=== PATIENT | female | born 1935 | race Caucasian/White ===

== ENCOUNTER 2020-09-10 11:17 | Observation (INO) ==
[2020-09-10 12:07] LABS: Bilirubin,Urine Negative (Negative); Blood,Urine Negative (Negative); Clarity,Urine Clear (Clear); Color,Urine Yellow (Yellow); Glucose,Urine (UA) Normal (Normal); Ketones,Urine 40 mg/dL (Negative); Leukocyte Esterase,Urine Small (Negative); Mucus,Urine Few per lpf (None-Few); Nitrite,Urine Negative (Negative); Protein,Urine 30 mg/dL (Neg-Trace); Specific Gravity,Urine 1.026 (1.010-1.025); Squamous Epithelial Cell,Urine Few per hpf (None-Few); Urobilinogen,Urine Normal (Normal); WBC,Urine 15-30 per hpf (0-3)
[2020-09-10] MEDS ORDERED: 0.9 % Sodium Chloride 1,000 ML IVC ONE (12:29)
[2020-09-10] MEDS ORDERED: Ondansetron 4 MG/2 ML VIAL IVP ONE (12:29)
[2020-09-10] MEDS ORDERED: Morphine Sulfate 2 MG/ML SYRINGE IVP ONE (12:34)
[2020-09-10 12:35] LABS: Basophils # 0.1 K/mcL (0.0-0.2); Basophils % 0.7 %; Eosinophils # 0.2 K/mcL (0.0-0.6); Eosinophils % 1.6 %; Hematocrit 45.1 % (35.3-44.9); Hemoglobin 14.3 g/dL (11.5-15.4); Immature Granulocytes % 0.3 % (0-4); Lymphocytes # 2.9 K/mcL (0.6-4.6); Mean Corpuscular HGB Conc 31.7 g/dL (31.6-35.5); Mean Corpuscular Hemoglobin 27.8 pg (28.0-33.3); Mean Corpuscular Volume 87.7 fL (83.0-100.0); Mean Platelet Volume 10.4 fL (9.4-12.4); Monocytes # 0.7 K/mcL (0.0-1.3); Monocytes % 6.3 %; Neutrophils # 6.8 K/mcL (1.6-8.9); Platelet Count 254 K/mcL (140-400); Red Blood Count 5.14 M/mcL (3.82-4.97); Red Cell Distribution Width 14.6 % (11.5-14.5); Segmented Neutrophils % 64.1 %; White Blood Count 10.5 K/mcL (4.3-11.1)
[2020-09-10 12:43] LABS: Alanine Aminotransferase 12 Units/L (7-52); Albumin 3.8 g/dL (3.5-5.7); Albumin/Globulin Ratio 1.2 (1.1-2.2); Alkaline Phosphatase 70 Units/L (34-104); Aspartate Amino Transferase 21 Units/L (13-39); BUN/Creatinine Ratio 24 (6-26); Bilirubin,Direct 0.2 mg/dL (0.0-0.2); Bilirubin,Indirect 0.6 mg/dL (0.0-1.0); Bilirubin,Total 0.8 mg/dL (0.3-1.0); Blood Urea Nitrogen 21 mg/dL (8-23); Calcium 9.6 mg/dL (8.6-10.3); Carbon Dioxide 21 mEq/L (23-29); Chloride 102 mEq/L (98-107); Globulin 3.3 g/dL (2.4-3.5); Glucose 211 mg/dL (70-105); Magnesium 1.7 mg/dL (1.6-2.6); Osmolality,Calculated 299 (280-300); Potassium 3.6 mEq/L (3.5-5.1); Sodium 140 mEq/L (136-145); Total Protein 7.1 g/dL (6.4-8.9); eGFR For African Americans > 60 (> 60); eGFR For Non-African Americans > 60 (> 60)
[2020-09-10 12:52] LABS: VBG HCO3 27 mEq/L (21-27); VBG PCO2 38 mmHg (41-51); VBG PH 7.46 pH Units (7.32-7.42); VBG PO2 57 mmHg (25-50)
[2020-09-10] MEDS ORDERED: Piperacillin/Tazobactam 3.375 GM in Water for inj. (sterile) 20 ML IVP ONE (13:38)
[2020-09-10] MEDS ORDERED: Pantoprazole 40 MG in 0.9 % Sodium Chloride 50 ML IVPB ONE (13:38)
[2020-09-10] MEDS ORDERED: *HR* Dextrose 50 % in Water (Vial) 50 ML VIAL IVP PRN (16:08)
[2020-09-10] MEDS ORDERED: D5% in Water 1,000 ML IVC PRN (16:08)
[2020-09-10] MEDS ORDERED: Dextrose Gel 15 GM/37.5 ML TUBE PO PRN (16:08)
[2020-09-10] MEDS ORDERED: 0.9 % Sodium Chloride 1,000 ML IVC SCH (16:15)
[2020-09-10] MEDS ORDERED: Naloxone 0.4 MG/ML INJ IVP PRN (16:41)
[2020-09-10] MEDS: Metoprolol XL (24 HR) Succ 50 MG TAB.ER.24H PO SCH (17:45)
[2020-09-10] MEDS: Aspirin Enteric Coated 81 MG Tablet PO SCH (17:45)
[2020-09-10] MEDS: Sucralfate 1 GM TABLET PO SCH (17:45)
[2020-09-10] MEDS: Dextrose Gel 15 GM/37.5 ML TUBE PO PRN ×2 (17:55→18:18)
[2020-09-10] MEDS ORDERED: *HR* Heparin 5,000 UNIT/ML VIAL SQ SCH (18:00)
[2020-09-10] MEDS: Insulin LISPRO 300 UNITS/3 ML VIAL SUBQ SCH ×2 (18:13→21:18)
[2020-09-10] MEDS: Acetaminophen 325 MG TABLET PO PRN (21:10)
[2020-09-10] MEDS: Pantoprazole 40 MG VIAL IVP SCH (21:11)
[2020-09-10] MEDS: Insulin DETEMIR 100 UNIT/ML X5UNITS SUBQ SCH (21:18)
[2020-09-11 04:55] LABS: Basophils # 0.1 K/mcL (0.0-0.2); Basophils % 0.6 %; Eosinophils # 0.3 K/mcL (0.0-0.6); Hematocrit 38.7 % (35.3-44.9); Immature Granulocytes % 0.3 % (0-4); Lymphocytes # 3.4 K/mcL (0.6-4.6); Lymphocytes % 39.6 %; Mean Corpuscular HGB Conc 30.5 g/dL (31.6-35.5); Mean Corpuscular Hemoglobin 27.8 pg (28.0-33.3); Mean Corpuscular Volume 91.3 fL (83.0-100.0); Mean Platelet Volume 10.3 fL (9.4-12.4); Monocytes # 0.7 K/mcL (0.0-1.3); Monocytes % 8.2 %; Neutrophils # 4.2 K/mcL (1.6-8.9); Platelet Count 200 K/mcL (140-400); Red Blood Count 4.24 M/mcL (3.82-4.97); Red Cell Distribution Width 14.8 % (11.5-14.5); Segmented Neutrophils % 48.3 %; White Blood Count 8.6 K/mcL (4.3-11.1)
[2020-09-11 04:57] LABS: Hemoglobin 11.8 g/dL (11.5-15.4)
[2020-09-11 05:08] LABS: BUN/Creatinine Ratio 23 (6-26); Blood Urea Nitrogen 23 mg/dL (8-23); Calcium 8.4 mg/dL (8.6-10.3); Carbon Dioxide 27 mEq/L (23-29); Chloride 107 mEq/L (98-107); Glucose 138 mg/dL (70-105); Osmolality,Calculated 296 (280-300); Potassium 4.2 mEq/L (3.5-5.1); Sodium 140 mEq/L (136-145); eGFR For African Americans > 60 (> 60); eGFR For Non-African Americans 53 (> 60)
[2020-09-11] MEDS: Pantoprazole 40 MG VIAL IVP SCH ×2 (05:38→17:04)
[2020-09-11] MEDS: Sucralfate 1 GM TABLET PO SCH ×2 (07:30→17:04)
[2020-09-11] MEDS: Insulin LISPRO 300 UNITS/3 ML VIAL SUBQ SCH ×4 (08:37→21:30)
[2020-09-11] MEDS: Aspirin Enteric Coated 81 MG Tablet PO SCH (08:39)
[2020-09-11] MEDS: Metoprolol XL (24 HR) Succ 50 MG TAB.ER.24H PO SCH (08:39)
[2020-09-11] MEDS: amLODIPine 5 MG TABLET PO SCH (08:39)
[2020-09-11] MEDS: cefTRIAXone 1,000 MG in 0.9 % Sodium Chloride Mini Bag 100 ML IVP SCH (08:40)
[2020-09-11] MEDS ORDERED: Aspirin 81 MG TAB.CHEW PO SCH (09:00)
[2020-09-11] MEDS ORDERED: Metoprolol XL (24 HR) Succ 50 MG TAB.ER.24H PO SCH (09:00)
[2020-09-11] MEDS: Ondansetron 4 MG/2 ML VIAL IVP PRN ×2 (09:40→18:13)
[2020-09-11] MEDS ORDERED: Morphine Sulfate 2 MG/ML SYRINGE IVP ONE ×2 (09:50→10:16)
[2020-09-11] MEDS: 0.9 % Sodium Chloride 1,000 ML IVC SCH (12:35)
[2020-09-11] MEDS ORDERED: *HR* Propofol 200 MG/20 ML VIAL IVP ONE (12:53)
[2020-09-11] MEDS ORDERED: Lidocaine -MPF 2% 2 ML VIAL ONE (12:53)
[2020-09-11] MEDS: Acetaminophen 325 MG TABLET PO PRN (21:30)
[2020-09-11] MEDS: Insulin DETEMIR 100 UNIT/ML X5UNITS SUBQ SCH (21:35)
[2020-09-12] MEDS: Pantoprazole 40 MG VIAL IVP SCH (05:50)
[2020-09-12 06:15] VITALS: BP 120/71
[2020-09-12] MEDS: Sucralfate 1 GM TABLET PO SCH (08:01)
[2020-09-12] MEDS: amLODIPine 5 MG TABLET PO SCH (08:01)
[2020-09-12] MEDS: Metoprolol XL (24 HR) Succ 50 MG TAB.ER.24H PO SCH (08:01)
[2020-09-12] MEDS: Aspirin Enteric Coated 81 MG Tablet PO SCH (08:01)
[2020-09-12] MEDS: cefTRIAXone 1,000 MG in 0.9 % Sodium Chloride Mini Bag 100 ML IVP SCH (08:02)
[2020-09-12] MEDS: Insulin LISPRO 300 UNITS/3 ML VIAL SUBQ SCH (08:02)
[2020-09-12] MEDS: 0.9 % Sodium Chloride 1,000 ML IVC SCH ×2 (08:07→08:12)
== END 2020-09-12 15:18 | disposition home health service (06) ==
LOC: 3ANU 11:17 → EMEROOARM 11:17 → 3ANU 16:53
PROVIDERS: ADMIT Internal Medicine; ATTEND Internal Medicine
PROC: ENDOEBX (2020-09-11 11:30)

== ENCOUNTER 2020-10-03 10:10 | Observation (INO) ==
[2020-10-03] MEDS ORDERED: *HR* Dextrose 50 % in Water (Vial) 50 ML VIAL IVP ONE (10:24)
[2020-10-03] MEDS ORDERED: *HR* Dextrose 50 % in Water (Vial) 50 ML VIAL ONE (10:26)
[2020-10-03 10:47] LABS: Hematocrit 39.1 % (35.3-44.9); Hemoglobin 12.1 g/dL (11.5-15.4); Mean Corpuscular HGB Conc 30.9 g/dL (31.6-35.5); Mean Corpuscular Hemoglobin 27.5 pg (28.0-33.3); Mean Corpuscular Volume 88.9 fL (83.0-100.0); Mean Platelet Volume 10.4 fL (9.4-12.4); Platelet Count 304 K/mcL (140-400); Red Cell Distribution Width 15.2 % (11.5-14.5); Segmented Neutrophils % 62.6 %; White Blood Count 7.8 K/mcL (4.3-11.1)
[2020-10-03 10:48] LABS: Basophils % 0.4 %; Eosinophils # 0.1 K/mcL (0.0-0.6); Eosinophils % 0.8 %; Immature Granulocytes % 0.4 % (0-4); Lymphocytes # 2.2 K/mcL (0.6-4.6); Lymphocytes % 27.9 %; Monocytes # 0.6 K/mcL (0.0-1.3); Monocytes % 7.9 %; Neutrophils # 4.9 K/mcL (1.6-8.9)
[2020-10-03 11:23] LABS: Alanine Aminotransferase 10 Units/L (7-52); Albumin 3.6 g/dL (3.5-5.7); Albumin/Globulin Ratio 1.1 (1.1-2.2); Alkaline Phosphatase 64 Units/L (34-104); Aspartate Amino Transferase 19 Units/L (13-39); BUN/Creatinine Ratio 27 (6-26); Bilirubin,Total 0.5 mg/dL (0.3-1.0); Blood Urea Nitrogen 21 mg/dL (8-23); Carbon Dioxide 28 mEq/L (23-29); Chloride 102 mEq/L (98-107); Globulin 3.3 g/dL (2.4-3.5); Glucose 64 mg/dL (70-105); Osmolality,Calculated 291 (280-300); Potassium 3.9 mEq/L (3.5-5.1); Sodium 140 mEq/L (136-145); Total Protein 6.9 g/dL (6.4-8.9); Troponin I 0.04 ng/mL (< 0.04); eGFR For African Americans > 60 (> 60); eGFR For Non-African Americans > 60 (> 60)
[2020-10-03] MEDS ORDERED: *HR* OxyCODONE/APAP 5/325 TABLET PO ONE (14:32)
[2020-10-03] MEDS ORDERED: Ondansetron 4 MG/2 ML VIAL IVP PRN (15:11)
[2020-10-03] MEDS ORDERED: Naloxone 0.4 MG/ML INJ IVP PRN (15:11)
[2020-10-03] MEDS ORDERED: Dextrose Gel 15 GM/37.5 ML TUBE PO PRN ×2 (15:19)
[2020-10-03] MEDS ORDERED: *HR* Dextrose 50 % in Water (Vial) 50 ML VIAL IVP PRN (15:19)
[2020-10-03] MEDS ORDERED: D5% in Water 1,000 ML IVC PRN (15:19)
[2020-10-03 16:22] LABS: Bacteria,Urine Few per hpf (None-Few); Bilirubin,Urine Negative (Negative); Blood,Urine Negative (Negative); Clarity,Urine Clear (Clear); Color,Urine Light-Yellow (Yellow); Glucose,Urine (UA) Normal (Normal); Ketones,Urine Negative (Negative); Leukocyte Esterase,Urine Small (Negative); Mucus,Urine Few per lpf (None-Few); Nitrite,Urine Negative (Negative); PH,Urine 6.5 pH Units (5.0-8.0); Protein,Urine Negative (Neg-Trace); RBC,Urine 0-3 per hpf (0-3); Specific Gravity,Urine 1.013 (1.010-1.025); Urobilinogen,Urine Normal (Normal)
[2020-10-03 16:43] LABS: Estimated Average Glucose 169 mg/dl; Hemoglobin A1C 7.5 %
[2020-10-03] MEDS: Insulin LISPRO 300 UNITS/3 ML VIAL SUBQ SCH ×2 (18:51→20:45)
[2020-10-03] MEDS: Pregabalin 75 MG CAPSULE PO SCH (19:48)
[2020-10-03] MEDS: 0.9 % Sodium Chloride 1,000 ML IVC SCH (19:49)
[2020-10-03] MEDS: Ketorolac 30 MG/ML VIAL IVP PRN (19:55)
[2020-10-04] MEDS: 0.9 % Sodium Chloride 1,000 ML IVC SCH (03:59)
[2020-10-04 06:08] LABS: Basophils # 0.1 K/mcL (0.0-0.2); Basophils % 0.9 %; Eosinophils # 0.1 K/mcL (0.0-0.6); Eosinophils % 2.4 %; Hematocrit 34.7 % (35.3-44.9); Hemoglobin 10.9 g/dL (11.5-15.4); Immature Granulocytes % 0.3 % (0-4); Lymphocytes % 33.6 %; Mean Corpuscular HGB Conc 31.4 g/dL (31.6-35.5); Mean Corpuscular Hemoglobin 27.6 pg (28.0-33.3); Mean Corpuscular Volume 87.8 fL (83.0-100.0); Mean Platelet Volume 10.1 fL (9.4-12.4); Monocytes # 0.5 K/mcL (0.0-1.3); Monocytes % 8.9 %; Neutrophils # 3.2 K/mcL (1.6-8.9); Platelet Count 284 K/mcL (140-400); Red Blood Count 3.95 M/mcL (3.82-4.97); Red Cell Distribution Width 15.1 % (11.5-14.5); Segmented Neutrophils % 53.9 %; White Blood Count 5.8 K/mcL (4.3-11.1)
[2020-10-04] MEDS: Ketorolac 30 MG/ML VIAL IVP PRN (06:19)
[2020-10-04 06:32] LABS: BUN/Creatinine Ratio 26 (6-26); Blood Urea Nitrogen 20 mg/dL (8-23); Calcium 8.2 mg/dL (8.6-10.3); Carbon Dioxide 27 mEq/L (23-29); Chloride 106 mEq/L (98-107); Glucose 198 mg/dL (70-105); Magnesium 1.7 mg/dL (1.6-2.6); Osmolality,Calculated 300 (280-300); Phosphorous 3.6 mg/dL (2.7-4.5); Potassium 3.9 mEq/L (3.5-5.1); Sodium 141 mEq/L (136-145); eGFR For African Americans > 60 (> 60); eGFR For Non-African Americans > 60 (> 60)
[2020-10-04] MEDS: Insulin LISPRO 300 UNITS/3 ML VIAL SUBQ SCH ×4 (08:15→22:43)
[2020-10-04] MEDS: amLODIPine 5 MG TABLET PO SCH (08:16)
[2020-10-04] MEDS: Metoprolol XL (24 HR) Succ 50 MG TAB.ER.24H PO SCH (08:16)
[2020-10-04] MEDS: Aspirin 81 MG TAB.CHEW PO SCH (08:16)
[2020-10-04] MEDS: Pregabalin 75 MG CAPSULE PO SCH ×2 (08:16→21:50)
[2020-10-04] MEDS: *HR* HYDROcodone/Acet 5/325 mg TABLET PO PRN ×2 (12:51→19:16)
[2020-10-04] MEDS ORDERED: Insulin DETEMIR 100 UNIT/ML X5UNITS SUBQ SCH (21:00)
[2020-10-05] MEDS: *HR* Enoxaparin 40 MG/0.4 ML SYRINGE SQ SCH (05:28)
[2020-10-05] MEDS: *HR* HYDROcodone/Acet 5/325 mg TABLET PO PRN ×2 (06:47→12:42)
[2020-10-05] MEDS: Metoprolol XL (24 HR) Succ 50 MG TAB.ER.24H PO SCH (08:16)
[2020-10-05] MEDS: Pregabalin 75 MG CAPSULE PO SCH ×2 (08:16→20:10)
[2020-10-05] MEDS: Aspirin 81 MG TAB.CHEW PO SCH (08:16)
[2020-10-05] MEDS: amLODIPine 5 MG TABLET PO SCH (08:16)
[2020-10-05] MEDS: Insulin LISPRO 300 UNITS/3 ML VIAL SUBQ SCH ×4 (08:18→20:05)
[2020-10-05] MEDS: *HR* HYDROcodone/Acet 7.5/325 mg TABLET PO PRN ×2 (17:19→23:21)
[2020-10-05] MEDS: Insulin DETEMIR 100 UNIT/ML X5UNITS SUBQ SCH (20:10)
[2020-10-05] MEDS: Nystatin POWDER 30 GM BOTTLE TP SCH (22:49)
[2020-10-06] MEDS: *HR* HYDROcodone/Acet 7.5/325 mg TABLET PO PRN ×5 (04:22→20:59)
[2020-10-06] MEDS: *HR* Enoxaparin 40 MG/0.4 ML SYRINGE SQ SCH (06:00)
[2020-10-06] MEDS: Insulin LISPRO 300 UNITS/3 ML VIAL SUBQ SCH ×4 (07:42→20:49)
[2020-10-06] MEDS: amLODIPine 5 MG TABLET PO SCH (08:28)
[2020-10-06] MEDS: Pregabalin 75 MG CAPSULE PO SCH ×2 (08:28→20:59)
[2020-10-06] MEDS: Aspirin 81 MG TAB.CHEW PO SCH (08:28)
[2020-10-06] MEDS: Metoprolol XL (24 HR) Succ 50 MG TAB.ER.24H PO SCH (08:29)
[2020-10-06] MEDS: Nystatin POWDER 30 GM BOTTLE TP SCH ×3 (08:30→21:00)
[2020-10-06] MEDS: Insulin DETEMIR 100 UNIT/ML X5UNITS SUBQ SCH (21:00)
[2020-10-07] MEDS: *HR* HYDROcodone/Acet 7.5/325 mg TABLET PO PRN ×5 (02:58→22:07)
[2020-10-07] MEDS: *HR* Enoxaparin 40 MG/0.4 ML SYRINGE SQ SCH (05:42)
[2020-10-07] MEDS: Insulin LISPRO 300 UNITS/3 ML VIAL SUBQ SCH ×4 (08:14→22:07)
[2020-10-07] MEDS: amLODIPine 5 MG TABLET PO SCH (09:20)
[2020-10-07] MEDS: Aspirin 81 MG TAB.CHEW PO SCH (09:20)
[2020-10-07] MEDS: Metoprolol XL (24 HR) Succ 50 MG TAB.ER.24H PO SCH (09:21)
[2020-10-07] MEDS: Pregabalin 75 MG CAPSULE PO SCH ×2 (09:21→22:07)
[2020-10-07] MEDS: Nystatin POWDER 30 GM BOTTLE TP SCH ×3 (09:23→22:08)
[2020-10-07] MEDS: Insulin DETEMIR 100 UNIT/ML X5UNITS SUBQ SCH (22:08)
[2020-10-08] MEDS: *HR* HYDROcodone/Acet 7.5/325 mg TABLET PO PRN ×5 (02:44→22:15)
[2020-10-08 03:22] LABS: Basophils # 0.1 K/mcL (0.0-0.2); Basophils % 0.6 %; Eosinophils # 0.2 K/mcL (0.0-0.6); Eosinophils % 2.2 %; Hematocrit 38.9 % (35.3-44.9); Immature Granulocytes % 2.2 % (0-4); Lymphocytes # 2.9 K/mcL (0.6-4.6); Lymphocytes % 35.6 %; Mean Corpuscular HGB Conc 30.8 g/dL (31.6-35.5); Mean Corpuscular Volume 90.9 fL (83.0-100.0); Mean Platelet Volume 9.9 fL (9.4-12.4); Monocytes # 0.7 K/mcL (0.0-1.3); Monocytes % 8.7 %; Neutrophils # 4.1 K/mcL (1.6-8.9); Platelet Count 269 K/mcL (140-400); Red Blood Count 4.28 M/mcL (3.82-4.97); Red Cell Distribution Width 14.8 % (11.5-14.5); Segmented Neutrophils % 50.7 %
[2020-10-08 03:28] LABS: BUN/Creatinine Ratio 27 (6-26); Blood Urea Nitrogen 22 mg/dL (8-23); Calcium 7.9 mg/dL (8.6-10.3); Carbon Dioxide 25 mEq/L (23-29); Chloride 107 mEq/L (98-107); Glucose 171 mg/dL (70-105); Magnesium 1.5 mg/dL (1.6-2.6); Osmolality,Calculated 295 (280-300); Potassium 3.8 mEq/L (3.5-5.1); Sodium 139 mEq/L (136-145); eGFR For African Americans > 60 (> 60); eGFR For Non-African Americans > 60 (> 60)
[2020-10-08] MEDS: *HR* Enoxaparin 40 MG/0.4 ML SYRINGE SQ SCH (06:47)
[2020-10-08] MEDS: Insulin LISPRO 300 UNITS/3 ML VIAL SUBQ SCH ×4 (08:32→22:17)
[2020-10-08] MEDS: Aspirin 81 MG TAB.CHEW PO SCH (08:38)
[2020-10-08] MEDS: Metoprolol XL (24 HR) Succ 50 MG TAB.ER.24H PO SCH (08:38)
[2020-10-08] MEDS: Pregabalin 75 MG CAPSULE PO SCH ×2 (08:39→22:15)
[2020-10-08] MEDS: amLODIPine 5 MG TABLET PO SCH (08:39)
[2020-10-08] MEDS: Nystatin POWDER 30 GM BOTTLE TP SCH ×3 (10:35→22:18)
[2020-10-08] MEDS: Insulin DETEMIR 100 UNIT/ML X5UNITS SUBQ SCH (22:16)
[2020-10-09] MEDS: *HR* Enoxaparin 40 MG/0.4 ML SYRINGE SQ SCH (06:56)
[2020-10-09] MEDS: Insulin LISPRO 300 UNITS/3 ML VIAL SUBQ SCH ×2 (08:29→12:35)
[2020-10-09] MEDS: amLODIPine 5 MG TABLET PO SCH (10:03)
[2020-10-09] MEDS: Metoprolol XL (24 HR) Succ 50 MG TAB.ER.24H PO SCH (10:03)
[2020-10-09] MEDS: Aspirin 81 MG TAB.CHEW PO SCH (10:03)
[2020-10-09] MEDS: Pregabalin 75 MG CAPSULE PO SCH (10:03)
[2020-10-09] MEDS: Nystatin POWDER 30 GM BOTTLE TP SCH (10:05)
[2020-10-09] MEDS: *HR* HYDROcodone/Acet 7.5/325 mg TABLET PO PRN (11:18)
[2020-10-09 12:45] VITALS: BP 132/73
[2020-10-09 14:52] LABS: Influenza A PCR Negative (Negative); Influenza B PCR Negative (Negative); Resp. Syncytial Virus PCR Negative (Negative); SARS-CoV-2 by PCR (In House) Negative (Negative)
== END 2020-10-09 15:28 ==
LOC: EMEROOARM 10:10 → 3BNU 10:10 → SUATTDRO 17:38 → 3BNU 18:52
PROVIDERS: ADMIT Family Medicine; ATTEND Internal Medicine

== ENCOUNTER 2020-11-04 14:23 | Inpatient (IN) ==
[2020-11-04] MEDS ORDERED: Calcium Gluconate 1gm/50mL 1 GM/50 ML BAG IVPB ONE (16:23)
[2020-11-04] MEDS ORDERED: Naloxone 0.4 MG/ML INJ IVP PRN (17:06)
[2020-11-04] MEDS ORDERED: Ondansetron 4 MG/2 ML VIAL IVP PRN (17:06)
[2020-11-04 17:16] LABS: Calcium 9.1 mg/dL (8.6-10.3); Potassium 5.4 mEq/L (3.5-5.1)
[2020-11-04 18:03] LABS: Adenovirus Not Detected (Not Detect); Bordetella Pertussis Not Detected (Not Detect); Chlamydophila pneumoniae Not Detected (Not Detect); Coronavirus 229E Not Detected (Not Detect); Coronavirus HKU1 Not Detected (Not Detect); Coronavirus NL63 Not Detected (Not Detect); Coronavirus OC43 Not Detected (Not Detect); Human Metapneumovirus Not Detected (Not Detect); Human Rhinovirus/Enterovirus Not Detected (Not Detect); Influenza A Subtype 2009 H1 Not Detected (Not Detect); Influenza B Not Detected (Not Detect); Mycoplasma pneumoniae Not Detected (Not Detect); Parainfluenza Virus 1 Not Detected (Not Detect); Parainfluenza Virus 2 Not Detected (Not Detect); Parainfluenza Virus 3 Not Detected (Not Detect); Parainfluenza Virus 4 Not Detected (Not Detect); Respiratory Syncytial Virus Not Detected (Not Detect); SARS-CoV-2 Not Detected (Not Detect)
[2020-11-04] MEDS ORDERED: Dextrose Gel 15 GM/37.5 ML TUBE PO PRN ×2 (18:25)
[2020-11-04] MEDS ORDERED: *HR* Dextrose 50 % in Water (Vial) 50 ML VIAL IVP PRN (18:25)
[2020-11-04] MEDS ORDERED: D5% in Water 1,000 ML IVC PRN (18:25)
[2020-11-04] MEDS: Piperacillin/Tazobactam 3.375 GM in 0.9 % Sodium Chloride Mini Bag 100 ML IVPB SCH (18:41)
[2020-11-04] MEDS ORDERED: Vancomycin 1,750 MG/517.5 ML IV.SOLN IVPB ONE (18:53)
[2020-11-04] MEDS ORDERED: *HR* Heparin 5,000 UNIT/ML VIAL SQ SCH (20:00)
[2020-11-04] MEDS ORDERED: Vancomycin 1 EACH in 0.9 % Sodium Chloride 250 ML IVPB PRN (20:00)
[2020-11-04] MEDS ORDERED: *HR* Heparin 5,000 UNIT/ML VIAL IVP ONE ×2 (20:02→20:21)
[2020-11-04] MEDS ORDERED: *HR* Heparin 5,000 UNIT/ML VIAL IVP PRN (20:02)
[2020-11-04] MEDS ORDERED: Heparin 25,000UNIT/250ML 1/2NS 25,000 UNIT/250 ML IV.SOLN IVC SCH (20:15)
[2020-11-04] MEDS: Heparin 25,000UNIT/250ML 1/2NS 25,000 UNIT/250 ML IV.SOLN IVC SCH (20:52)
[2020-11-04 21:18] LABS: Hematocrit 32.8 % (35.3-44.9); Hemoglobin 10.2 g/dL (11.5-15.4); Mean Corpuscular HGB Conc 31.1 g/dL (31.6-35.5); Mean Corpuscular Hemoglobin 27.8 pg (28.0-33.3); Mean Corpuscular Volume 89.4 fL (83.0-100.0); Platelet Count 230 K/mcL (140-400); Red Blood Count 3.67 M/mcL (3.82-4.97); Red Cell Distribution Width 16.1 % (11.5-14.5); White Blood Count 12.2 K/mcL (4.3-11.1)
[2020-11-04 21:22] LABS: Bilirubin,Urine Negative (Negative); Blood,Urine Negative (Negative); Clarity,Urine Clear (Clear); Color,Urine Yellow (Yellow); Glucose,Urine (UA) Normal (Normal); Ketones,Urine Negative (Negative); Leukocyte Esterase,Urine Negative (Negative); Nitrite,Urine Negative (Negative); PH,Urine 5.5 pH Units (5.0-8.0); Protein,Urine Trace mg/dL (Neg-Trace); Specific Gravity,Urine 1.022 (1.010-1.025)
[2020-11-04 21:27] LABS: INR 2.4; Prothrombin Time 27.5 Seconds (9.4-12.1)
[2020-11-04 21:39] LABS: Heparin anti-factor XA UFH > 2.00 IU/mL (0.30-0.70)
[2020-11-04] MEDS: Insulin LISPRO 300 UNITS/3 ML VIAL SUBQ SCH (23:35)
[2020-11-05 03:40] LABS: Basophils # 0.1 K/mcL (0.0-0.2); Basophils % 0.5 %; Eosinophils # 0.1 K/mcL (0.0-0.6); Eosinophils % 0.9 %; Hematocrit 33.3 % (35.3-44.9); Immature Granulocytes % 0.8 % (0-4); Lymphocytes # 1.7 K/mcL (0.6-4.6); Lymphocytes % 16.4 %; Mean Corpuscular Hemoglobin 27.2 pg (28.0-33.3); Mean Corpuscular Volume 90.5 fL (83.0-100.0); Mean Platelet Volume 11.4 fL (9.4-12.4); Monocytes # 0.9 K/mcL (0.0-1.3); Monocytes % 8.9 %; Neutrophils # 7.7 K/mcL (1.6-8.9); Platelet Count 260 K/mcL (140-400); Red Blood Count 3.68 M/mcL (3.82-4.97); Red Cell Distribution Width 16.3 % (11.5-14.5); Segmented Neutrophils % 72.5 %; White Blood Count 10.6 K/mcL (4.3-11.1)
[2020-11-05] MEDS: Piperacillin/Tazobactam 3.375 GM in 0.9 % Sodium Chloride Mini Bag 100 ML IVPB SCH ×3 (03:47→18:39)
[2020-11-05 03:50] LABS: INR 2.2; Prothrombin Time 25.2 Seconds (9.4-12.1)
[2020-11-05 03:58] LABS: Albumin 2.8 g/dL (3.5-5.7); Albumin/Globulin Ratio 0.9 (1.1-2.2); Bilirubin,Total 0.5 mg/dL (0.3-1.0); Calcium 8.6 mg/dL (8.6-10.3); Magnesium 2.2 mg/dL (1.6-2.6); Phosphorous 4.2 mg/dL (2.7-4.5); Potassium 5.4 mEq/L (3.5-5.1); Total Protein 5.8 g/dL (6.4-8.9)
[2020-11-05] MEDS: *HR* Heparin 5,000 UNIT/ML VIAL IVP PRN ×2 (04:27→12:17)
[2020-11-05] MEDS: Insulin LISPRO 300 UNITS/3 ML VIAL SUBQ SCH ×4 (05:20→23:40)
[2020-11-05] MEDS ORDERED: Ondansetron ODT 4 MG TAB.RAPDIS PO PRN (13:50)
[2020-11-05] MEDS: Heparin 25,000UNIT/250ML 1/2NS 25,000 UNIT/250 ML IV.SOLN IVC SCH (16:48)
[2020-11-05] MEDS: Magnesium Oxide 400 MG TABLET PO SCH (19:40)
[2020-11-05] MEDS ORDERED: Insulin DETEMIR 100 UNIT/ML X5UNITS SUBQ SCH (21:00)
[2020-11-06 03:10] LABS: Basophils % 0.6 %; Eosinophils # 0.3 K/mcL (0.0-0.6); Hematocrit 32.7 % (35.3-44.9); Hemoglobin 9.8 g/dL (11.5-15.4); Immature Granulocytes % 0.6 % (0-4); Lymphocytes # 1.4 K/mcL (0.6-4.6); Lymphocytes % 22.2 %; Mean Corpuscular Hemoglobin 26.9 pg (28.0-33.3); Mean Corpuscular Volume 89.8 fL (83.0-100.0); Mean Platelet Volume 10.8 fL (9.4-12.4); Monocytes # 0.8 K/mcL (0.0-1.3); Monocytes % 12.1 %; Neutrophils # 3.8 K/mcL (1.6-8.9); Platelet Count 238 K/mcL (140-400); Red Blood Count 3.64 M/mcL (3.82-4.97); Red Cell Distribution Width 16.4 % (11.5-14.5); Segmented Neutrophils % 60.5 %; White Blood Count 6.3 K/mcL (4.3-11.1)
[2020-11-06] MEDS: Piperacillin/Tazobactam 3.375 GM in 0.9 % Sodium Chloride Mini Bag 100 ML IVPB SCH ×3 (03:15→19:28)
[2020-11-06 03:20] LABS: INR 1.4
[2020-11-06 03:22] LABS: Activated Partial Thrombo Time 87.2 Seconds (26.0-36.0)
[2020-11-06 03:30] LABS: BUN/Creatinine Ratio 42 (6-26); Blood Urea Nitrogen 31 mg/dL (8-23); Calcium 8.2 mg/dL (8.6-10.3); Carbon Dioxide 32 mEq/L (23-29); Chloride 99 mEq/L (98-107); Glucose 165 mg/dL (70-105); Osmolality,Calculated 294 (280-300); Potassium 4.5 mEq/L (3.5-5.1); Sodium 137 mEq/L (136-145); eGFR For African Americans > 60 (> 60); eGFR For Non-African Americans > 60 (> 60)
[2020-11-06] MEDS: Insulin LISPRO 300 UNITS/3 ML VIAL SUBQ SCH ×3 (05:08→16:30)
[2020-11-06] MEDS: Aspirin 81 MG TAB.CHEW PO SCH (07:55)
[2020-11-06] MEDS: Magnesium Oxide 400 MG TABLET PO SCH ×2 (07:55→19:59)
[2020-11-06] MEDS: Vitamin E 200 UNIT (90MG) CAPSULE PO SCH (07:55)
[2020-11-06] MEDS ORDERED: Acetaminophen 325 MG TABLET PO PRN (08:09)
[2020-11-06] MEDS: DilTIAZem CD (24hr) 180 MG CAP.ER.24H PO SCH (08:37)
[2020-11-06] MEDS: Metoprolol XL (24 HR) Succ 50 MG TAB.ER.24H PO SCH ×2 (08:37→20:00)
[2020-11-06] MEDS ORDERED: Furosemide 20 MG TABLET PO SCH (09:00)
[2020-11-06] MEDS: *HR* Rivaroxaban 10 MG TABLET PO SCH (10:14)
[2020-11-06] MEDS ORDERED: *HR* Rivaroxaban 10 MG TABLET PO SCH (17:00)
[2020-11-06] MEDS: Furosemide 20 MG TABLET PO SCH (17:16)
[2020-11-06] MEDS: Insulin DETEMIR 100 UNIT/ML X5UNITS SUBQ SCH (20:02)
[2020-11-07] MEDS: Insulin LISPRO 300 UNITS/3 ML VIAL SUBQ SCH ×5 (00:15→20:18)
[2020-11-07 01:50] LABS: Basophils % 0.7 %; Eosinophils # 0.2 K/mcL (0.0-0.6); Eosinophils % 3.1 %; Hematocrit 33.6 % (35.3-44.9); Hemoglobin 10.4 g/dL (11.5-15.4); Immature Granulocytes % 0.7 % (0-4); Lymphocytes # 1.2 K/mcL (0.6-4.6); Lymphocytes % 22.7 %; Mean Corpuscular Hemoglobin 27.7 pg (28.0-33.3); Mean Corpuscular Volume 89.6 fL (83.0-100.0); Mean Platelet Volume 10.6 fL (9.4-12.4); Monocytes # 0.7 K/mcL (0.0-1.3); Monocytes % 11.9 %; Neutrophils # 3.3 K/mcL (1.6-8.9); Platelet Count 248 K/mcL (140-400); Red Blood Count 3.75 M/mcL (3.82-4.97); Red Cell Distribution Width 16.2 % (11.5-14.5); Segmented Neutrophils % 60.9 %; White Blood Count 5.5 K/mcL (4.3-11.1)
[2020-11-07 02:10] LABS: BUN/Creatinine Ratio 28 (6-26); Blood Urea Nitrogen 17 mg/dL (8-23); Carbon Dioxide 36 mEq/L (23-29); Chloride 97 mEq/L (98-107); Glucose 137 mg/dL (70-105); Magnesium 1.4 mg/dL (1.6-2.6); Osmolality,Calculated 292 (280-300); Potassium 3.8 mEq/L (3.5-5.1); Sodium 139 mEq/L (136-145); eGFR For African Americans > 60 (> 60); eGFR For Non-African Americans > 60 (> 60)
[2020-11-07] MEDS: Piperacillin/Tazobactam 3.375 GM in 0.9 % Sodium Chloride Mini Bag 100 ML IVPB SCH ×3 (03:53→20:24)
[2020-11-07 07:22] LABS: ABG Base Excess 10 mEq/L (-2 to 3); ABG HCO3 36 mEq/L (21-27); ABG Oxygen Saturation 90 % (95-98); ABG PCO2 51 mmHg (35-45); ABG PH 7.45 pH Units (7.32-7.45); ABG PO2 57 mmHg (85-104); ABG TCO2 37 mEq/L (20-26)
[2020-11-07] MEDS: Magnesium Oxide 400 MG TABLET PO SCH ×2 (07:47→20:24)
[2020-11-07] MEDS: Furosemide 20 MG TABLET PO SCH ×2 (07:47→17:10)
[2020-11-07] MEDS: Metoprolol XL (24 HR) Succ 50 MG TAB.ER.24H PO SCH ×2 (07:47→20:24)
[2020-11-07] MEDS: DilTIAZem CD (24hr) 180 MG CAP.ER.24H PO SCH (07:47)
[2020-11-07] MEDS: Sennosides/Docusate Sodium TABLET PO SCH ×2 (07:47→20:24)
[2020-11-07] MEDS: Vitamin E 200 UNIT (90MG) CAPSULE PO SCH (07:47)
[2020-11-07] MEDS: Aspirin 81 MG TAB.CHEW PO SCH (07:47)
[2020-11-07] MEDS ORDERED: Metoprolol XL (24 HR) Succ 25 MG TAB.ER.24H PO ONE (11:11)
[2020-11-07] MEDS: Milk and Molasses Enema 200 ML RC ONE ×2 (11:50→12:19)
[2020-11-07] MEDS: *HR* Rivaroxaban 10 MG TABLET PO SCH (17:10)
[2020-11-07] MEDS: Insulin DETEMIR 100 UNIT/ML X5UNITS SUBQ SCH (20:25)
[2020-11-08 01:17] LABS: Basophils % 0.6 %; Eosinophils # 0.2 K/mcL (0.0-0.6); Eosinophils % 3.2 %; Hematocrit 35.1 % (35.3-44.9); Hemoglobin 10.8 g/dL (11.5-15.4); Immature Granulocytes % 0.6 % (0-4); Lymphocytes # 1.6 K/mcL (0.6-4.6); Lymphocytes % 24.8 %; Mean Corpuscular HGB Conc 30.8 g/dL (31.6-35.5); Mean Corpuscular Volume 87.8 fL (83.0-100.0); Mean Platelet Volume 10.4 fL (9.4-12.4); Monocytes # 0.9 K/mcL (0.0-1.3); Monocytes % 13.1 %; Neutrophils # 3.7 K/mcL (1.6-8.9); Platelet Count 260 K/mcL (140-400); Red Cell Distribution Width 16.3 % (11.5-14.5); Segmented Neutrophils % 57.7 %; White Blood Count 6.5 K/mcL (4.3-11.1)
[2020-11-08 01:26] LABS: BUN/Creatinine Ratio 17 (6-26); Blood Urea Nitrogen 11 mg/dL (8-23); Carbon Dioxide 38 mEq/L (23-29); Chloride 95 mEq/L (98-107); Glucose 146 mg/dL (70-105); Magnesium 1.6 mg/dL (1.6-2.6); Osmolality,Calculated 288 (280-300); Potassium 3.7 mEq/L (3.5-5.1); Sodium 138 mEq/L (136-145); eGFR For African Americans > 60 (> 60); eGFR For Non-African Americans > 60 (> 60)
[2020-11-08] MEDS: Piperacillin/Tazobactam 3.375 GM in 0.9 % Sodium Chloride Mini Bag 100 ML IVPB SCH ×3 (04:53→21:25)
[2020-11-08] MEDS: Insulin LISPRO 300 UNITS/3 ML VIAL SUBQ SCH ×4 (08:36→22:03)
[2020-11-08] MEDS: Vitamin E 200 UNIT (90MG) CAPSULE PO SCH (08:46)
[2020-11-08] MEDS: Furosemide 20 MG TABLET PO SCH ×2 (08:46→17:00)
[2020-11-08] MEDS: Sennosides/Docusate Sodium TABLET PO SCH ×2 (08:46→21:24)
[2020-11-08] MEDS: Magnesium Oxide 400 MG TABLET PO SCH ×2 (08:46→21:24)
[2020-11-08] MEDS: Aspirin 81 MG TAB.CHEW PO SCH (08:47)
[2020-11-08] MEDS: Metoprolol XL (24 HR) Succ 50 MG TAB.ER.24H PO SCH ×2 (08:47→21:24)
[2020-11-08] MEDS: DilTIAZem CD (24hr) 180 MG CAP.ER.24H PO SCH (08:47)
[2020-11-08] MEDS: *HR* Rivaroxaban 10 MG TABLET PO SCH (17:00)
[2020-11-08] MEDS: Insulin DETEMIR 100 UNIT/ML X5UNITS SUBQ SCH (22:00)
[2020-11-09] MEDS: Piperacillin/Tazobactam 3.375 GM in 0.9 % Sodium Chloride Mini Bag 100 ML IVPB SCH ×3 (04:05→18:05)
[2020-11-09 07:25] LABS: Basophils % 0.5 %; Eosinophils # 0.3 K/mcL (0.0-0.6); Eosinophils % 4.4 %; Hematocrit 38.2 % (35.3-44.9); Hemoglobin 11.7 g/dL (11.5-15.4); Immature Granulocytes % 0.8 % (0-4); Lymphocytes # 1.6 K/mcL (0.6-4.6); Lymphocytes % 21.2 %; Mean Corpuscular HGB Conc 30.6 g/dL (31.6-35.5); Mean Corpuscular Hemoglobin 27.6 pg (28.0-33.3); Mean Corpuscular Volume 90.1 fL (83.0-100.0); Mean Platelet Volume 10.5 fL (9.4-12.4); Monocytes # 0.9 K/mcL (0.0-1.3); Monocytes % 11.9 %; Neutrophils # 4.6 K/mcL (1.6-8.9); Platelet Count 258 K/mcL (140-400); Red Blood Count 4.24 M/mcL (3.82-4.97); Red Cell Distribution Width 16.2 % (11.5-14.5); Segmented Neutrophils % 61.2 %; White Blood Count 7.5 K/mcL (4.3-11.1)
[2020-11-09 08:12] LABS: BUN/Creatinine Ratio 16 (6-26); Blood Urea Nitrogen 10 mg/dL (8-23); Calcium 8.3 mg/dL (8.6-10.3); Carbon Dioxide 35 mEq/L (23-29); Chloride 95 mEq/L (98-107); Glucose 146 mg/dL (70-105); Osmolality,Calculated 288 (280-300); Sodium 138 mEq/L (136-145); eGFR For African Americans > 60 (> 60); eGFR For Non-African Americans > 60 (> 60)
[2020-11-09] MEDS: Sennosides/Docusate Sodium TABLET PO SCH ×2 (08:47→20:34)
[2020-11-09] MEDS: Insulin LISPRO 300 UNITS/3 ML VIAL SUBQ SCH ×4 (08:47→20:46)
[2020-11-09] MEDS: Magnesium Oxide 400 MG TABLET PO SCH ×2 (08:47→20:33)
[2020-11-09] MEDS: Aspirin 81 MG TAB.CHEW PO SCH (08:47)
[2020-11-09] MEDS: Metoprolol XL (24 HR) Succ 50 MG TAB.ER.24H PO SCH ×2 (08:47→20:33)
[2020-11-09] MEDS: Furosemide 20 MG TABLET PO SCH ×2 (08:47→18:05)
[2020-11-09] MEDS: Vitamin E 200 UNIT (90MG) CAPSULE PO SCH (08:47)
[2020-11-09] MEDS: DilTIAZem CD (24hr) 180 MG CAP.ER.24H PO SCH (08:47)
[2020-11-09] MEDS: *HR* Rivaroxaban 10 MG TABLET PO SCH (18:05)
[2020-11-09] MEDS ORDERED: Furosemide 20 MG TABLET PO ONE (18:17)
[2020-11-09] MEDS: Insulin DETEMIR 100 UNIT/ML X5UNITS SUBQ SCH (20:33)
[2020-11-10] MEDS: Piperacillin/Tazobactam 3.375 GM in 0.9 % Sodium Chloride Mini Bag 100 ML IVPB SCH ×2 (03:47→11:43)
[2020-11-10] MEDS ORDERED: Furosemide 40 MG/4 ML VIAL IVP ONE ×2 (08:03→17:11)
[2020-11-10] MEDS: Insulin LISPRO 300 UNITS/3 ML VIAL SUBQ SCH ×4 (08:04→20:25)
[2020-11-10] MEDS: Furosemide 20 MG TABLET PO SCH ×2 (08:12→17:50)
[2020-11-10] MEDS: Sennosides/Docusate Sodium TABLET PO SCH ×2 (08:17→20:24)
[2020-11-10] MEDS: DilTIAZem CD (24hr) 180 MG CAP.ER.24H PO SCH (08:17)
[2020-11-10] MEDS: Magnesium Oxide 400 MG TABLET PO SCH ×2 (08:17→20:24)
[2020-11-10] MEDS: Aspirin 81 MG TAB.CHEW PO SCH (08:17)
[2020-11-10] MEDS: Vitamin E 200 UNIT (90MG) CAPSULE PO SCH (08:18)
[2020-11-10] MEDS: Metoprolol XL (24 HR) Succ 50 MG TAB.ER.24H PO SCH (08:18)
[2020-11-10] MEDS ORDERED: Metoprolol XL (24 HR) Succ 50 MG TAB.ER.24H PO ONE (09:56)
[2020-11-10] MEDS ORDERED: *HR* Digoxin 0.5 MG/2 ML AMPUL IVP ONE (17:12)
[2020-11-10] MEDS: *HR* Rivaroxaban 10 MG TABLET PO SCH (17:59)
[2020-11-10] MEDS: Insulin DETEMIR 100 UNIT/ML X5UNITS SUBQ SCH (20:25)
[2020-11-11] MEDS ORDERED: *HR* Digoxin 0.5 MG/2 ML AMPUL IVP ONE ×2 (06:00→18:00)
[2020-11-11 07:29] LABS: BUN/Creatinine Ratio 16 (6-26); Blood Urea Nitrogen 11 mg/dL (8-23); Calcium 8.3 mg/dL (8.6-10.3); Carbon Dioxide 41 mEq/L (23-29); Chloride 93 mEq/L (98-107); Glucose 151 mg/dL (70-105); Osmolality,Calculated 288 (280-300); Potassium 3.6 mEq/L (3.5-5.1); Sodium 138 mEq/L (136-145); eGFR For African Americans > 60 (> 60); eGFR For Non-African Americans > 60 (> 60)
[2020-11-11] MEDS: Vitamin E 200 UNIT (90MG) CAPSULE PO SCH (08:17)
[2020-11-11] MEDS: Aspirin 81 MG TAB.CHEW PO SCH (08:17)
[2020-11-11] MEDS: Magnesium Oxide 400 MG TABLET PO SCH ×2 (08:17→21:14)
[2020-11-11] MEDS: Insulin LISPRO 300 UNITS/3 ML VIAL SUBQ SCH ×4 (08:18→21:15)
[2020-11-11] MEDS: DilTIAZem CD (24hr) 180 MG CAP.ER.24H PO SCH (08:18)
[2020-11-11] MEDS: Sennosides/Docusate Sodium TABLET PO SCH (08:18)
[2020-11-11 09:52] LABS: VBG HCO3 39 mEq/L (21-27); VBG PCO2 64 mmHg (41-51); VBG PH 7.39 pH Units (7.32-7.42); VBG PO2 87 mmHg (25-50)
[2020-11-11] MEDS: *HR* Rivaroxaban 10 MG TABLET PO SCH (17:31)
[2020-11-11] MEDS: Insulin DETEMIR 100 UNIT/ML X5UNITS SUBQ SCH (21:14)
[2020-11-12 02:24] LABS: Basophils % 0.5 %; Eosinophils # 0.4 K/mcL (0.0-0.6); Eosinophils % 3.9 %; Hematocrit 37.1 % (35.3-44.9); Hemoglobin 11.2 g/dL (11.5-15.4); Immature Granulocytes % 0.8 % (0-4); Lymphocytes # 1.8 K/mcL (0.6-4.6); Lymphocytes % 20.2 %; Mean Corpuscular HGB Conc 30.2 g/dL (31.6-35.5); Mean Corpuscular Hemoglobin 27.3 pg (28.0-33.3); Mean Corpuscular Volume 90.3 fL (83.0-100.0); Mean Platelet Volume 10.6 fL (9.4-12.4); Monocytes # 1.2 K/mcL (0.0-1.3); Monocytes % 13.7 %; Neutrophils # 5.4 K/mcL (1.6-8.9); Platelet Count 303 K/mcL (140-400); Red Blood Count 4.11 M/mcL (3.82-4.97); Segmented Neutrophils % 60.9 %; White Blood Count 8.9 K/mcL (4.3-11.1)
[2020-11-12 02:41] LABS: BUN/Creatinine Ratio 22 (6-26); Blood Urea Nitrogen 14 mg/dL (8-23); Calcium 8.5 mg/dL (8.6-10.3); Carbon Dioxide 39 mEq/L (23-29); Chloride 94 mEq/L (98-107); Glucose 131 mg/dL (70-105); Osmolality,Calculated 286 (280-300); Potassium 3.7 mEq/L (3.5-5.1); Sodium 137 mEq/L (136-145); eGFR For African Americans > 60 (> 60); eGFR For Non-African Americans > 60 (> 60)
[2020-11-12] MEDS: Aspirin 81 MG TAB.CHEW PO SCH (09:25)
[2020-11-12] MEDS: Vitamin E 200 UNIT (90MG) CAPSULE PO SCH (09:25)
[2020-11-12] MEDS: DilTIAZem CD (24hr) 180 MG CAP.ER.24H PO SCH (09:25)
[2020-11-12] MEDS: Insulin LISPRO 300 UNITS/3 ML VIAL SUBQ SCH ×4 (09:25→21:27)
[2020-11-12] MEDS: Magnesium Oxide 400 MG TABLET PO SCH ×2 (09:25→21:25)
[2020-11-12] MEDS: *HR* Digoxin 0.125 MG TABLET PO SCH (09:26)
[2020-11-12] MEDS: *HR* Rivaroxaban 10 MG TABLET PO SCH (16:19)
[2020-11-12] MEDS: Furosemide 20 MG TABLET PO SCH (16:19)
[2020-11-12] MEDS: Insulin DETEMIR 100 UNIT/ML X5UNITS SUBQ SCH (21:26)
[2020-11-13] MEDS: Insulin LISPRO 300 UNITS/3 ML VIAL SUBQ SCH ×2 (07:58→12:09)
[2020-11-13] MEDS: Magnesium Oxide 400 MG TABLET PO SCH (07:59)
[2020-11-13] MEDS: DilTIAZem CD (24hr) 180 MG CAP.ER.24H PO SCH (07:59)
[2020-11-13] MEDS: Vitamin E 200 UNIT (90MG) CAPSULE PO SCH (07:59)
[2020-11-13] MEDS: Aspirin 81 MG TAB.CHEW PO SCH (07:59)
[2020-11-13] MEDS: Furosemide 20 MG TABLET PO SCH (07:59)
[2020-11-13] MEDS: *HR* Digoxin 0.125 MG TABLET PO SCH (07:59)
[2020-11-13 09:12] LABS: BUN/Creatinine Ratio 24 (6-26); Blood Urea Nitrogen 16 mg/dL (8-23); Calcium 8.7 mg/dL (8.6-10.3); Carbon Dioxide 41 mEq/L (23-29); Chloride 93 mEq/L (98-107); Glucose 156 mg/dL (70-105); Osmolality,Calculated 288 (280-300); Potassium 3.8 mEq/L (3.5-5.1); Sodium 137 mEq/L (136-145); eGFR For African Americans > 60 (> 60); eGFR For Non-African Americans > 60 (> 60)
[2020-11-13 11:33] VITALS: BP 121/59
[2020-11-13 14:04] LABS: Adenovirus Not Detected (Not Detect); Bordetella Pertussis Not Detected (Not Detect); Chlamydophila pneumoniae Not Detected (Not Detect); Coronavirus 229E Not Detected (Not Detect); Coronavirus HKU1 Not Detected (Not Detect); Coronavirus NL63 Not Detected (Not Detect); Coronavirus OC43 Not Detected (Not Detect); Human Metapneumovirus Not Detected (Not Detect); Human Rhinovirus/Enterovirus Not Detected (Not Detect); Influenza A Subtype 2009 H1 Not Detected (Not Detect); Influenza B Not Detected (Not Detect); Mycoplasma pneumoniae Not Detected (Not Detect); Parainfluenza Virus 1 Not Detected (Not Detect); Parainfluenza Virus 2 Not Detected (Not Detect); Parainfluenza Virus 3 Not Detected (Not Detect); Parainfluenza Virus 4 Not Detected (Not Detect); Respiratory Syncytial Virus Not Detected (Not Detect); SARS-CoV-2 Not Detected (Not Detect)
== END 2020-11-13 15:53 | DRG 871 ==
LOC: INTOOBSV 15:40 → SUATTDRO 15:40 → 2NNU 15:40 → SUATTDRO 18:40 → 2ANU 11-08 19:35
PROVIDERS: ADMIT Internal Medicine; ATTEND Student in an Organized Health Care Education/Training Program